=== PATIENT | female | born 2005 | race African-American/Black ===

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

== ENCOUNTER 2023-10-21 19:52 | Emergency (ER) | payer MEDICARE, OTHER ==
[~2023-10-21] VITALS: Ht 172.7 cm; Wt 93.0 kg
[2023-10-21] MEDS ORDERED: KETOROLAC 15MG/ML VIAL IM ONE (21:00)
[2023-10-21 21:04] VITALS: O2SAT 100
[2023-10-21] MEDS ORDERED: METH-653 MT (21:05)
[2023-10-21] MEDS ORDERED: LIDO700A15 TP (21:05)
[2023-10-21 21:28] VITALS: BP 124/77; PULSE 73; RESP 20; TEMP 98.3
== END 2023-10-21 21:29 | disposition home or self-care (01) ==
LOC: ER 19:52
DX: M54.2 Cervicalgia (principal); V49.9XXA Car occupant (driver) (passenger) injured in unspecified traffic accident, initial encounter; Y93.9 Activity, unspecified; Y92.89 Other specified places as the place of occurrence of the external cause; Y99.8 Other external cause status
CPT/HCPCS: 81025; 99283; J1885; Z7610 ×2

== ENCOUNTER 2024-01-16 06:51 | Emergency (ER) | payer MEDICARE ==
[~2024-01-16] VITALS: Ht 175.3 cm; Wt 90.0 kg
[~2024-01-16 06:51] MED LIST: LIDO700A15 TP; METH-653 MT
[2024-01-16 07:16] VITALS: O2SAT 99
[2024-01-16] MEDS: ONDANSETRON 4MG ODT PO STA (08:17)
[2024-01-16] MEDS: MAGNESIUM/ALUMINUM HYDROXIDE/SIMETHICONE 30ML UDC PO STA (08:17)
[2024-01-16 08:41] LABS: CLARITY URINE CLEAR (CLEAR); COLOR URINE YELLOW (YELLOW); GLUCOSE URINE NEGATIVE (NEGATIVE); KETONES URINE NEGATIVE (NEGATIVE); LEUKOCYTE ESTERASE URINE 2+ (NEGATIVE); NITRITE URINE NEGATIVE (NEGATIVE); OCCULT BLOOD URINE NEGATIVE (NEGATIVE); PH URINE 6.5 (4.5-8.0); PROTEIN URINE NEGATIVE (NEGATIVE); SPECIFIC GRAVITY URINE 1.012 (1.005-1.030); UROBILINOGEN URINE 0.2 E.U./dL (0.2-1.0)
[2024-01-16 08:43] LABS: CHLORIDE 110 mEq/L (98-107); POTASSIUM 4.4 mEq/L (3.5-5.1); SODIUM 140 mEq/L (136-145)
[2024-01-16 08:44] LABS: BASOPHILS % 0.9 % (0.0-2.0); CARBON DIOXIDE 26 mEq/L (21-32); DIFFERENTIAL COMMENT 0; HCG SCREEN NEGATIVE; HEMATOCRIT. 36.5 % (36.0-48.0); HEMOGLOBIN. 11.9 g/dL (12.0-16.0); LYMPHOCYTES % 30.5 % (20.0-50.0); MEAN CORPUSCULAR HEMOGLOBIN 24.3 pg (28.0-32.0); MEAN CORPUSCULAR HGB CONC 32.5 g/dL (31.0-37.0); MEAN CORPUSCULAR VOLUME 74.8 fL (81.0-99.0); MEAN PLATELET VOLUME 9.7 fl (7.4-10.4); NEUTROPHILS % 59.6 % (40.0-76.0); PLATELET 225 x1000/uL (130-400); RED BLOOD CELL COUNT 4.89 mill/uL (4.2-5.4); RED CELL DISTRIBUTION WIDTH 15.1 % (11.6-14.6); WHITE BLOOD COUNT 6.7 x1000/uL (4.5-11.0)
[2024-01-16 08:45] LABS: CALCIUM 9.7 mg/dL (8.7-10.4)
[2024-01-16 08:46] LABS: INR 0.9; PROTHROMBIN TIME 10.5 sec (9.6-11.0)
[2024-01-16 08:49] LABS: CREATININE 0.8 mg/dL (0.6-1.0)
[2024-01-16 08:50] LABS: GLUCOSE 85 mg/dL (70-105); UREA NITROGEN BLOOD 7 mg/dL (9-23)
[2024-01-16 08:51] LABS: ALANINE AMINOTRANSFERASE 10 IU/L (10-49); ALBUMIN 4.3 g/dL (3.2-4.8); ASPARTATE AMINOTRANSFERASE 24 IU/L (<34)
[2024-01-16 08:52] LABS: BILIRUBIN DIRECT 0.2 mg/dL (<=3.0); BILIRUBIN TOTAL 0.7 mg/dL (0.1-1.0); PROTEIN TOTAL 7.4 g/dL (6.0-8.3)
[2024-01-16 09:01] LABS: SQUAMOUS EPITHELIAL CELL URINE 1+ /lpf (RARE/1+)
[2024-01-16 09:05] LABS: BACTERIA URINE TRACE
[2024-01-16 09:06] LABS: RBC URINE 0-2 /hpf (0-2)
[2024-01-16] MEDS ORDERED: CEFP100S5 MT (11:11)
[2024-01-16 11:18] VITALS: BP 117/50; PULSE 62; RESP 18; TEMP 36.50292; O2SAT 100
== END 2024-01-16 11:45 | disposition home or self-care (01) ==
LOC: ER 06:51
DX: R10.13 Epigastric pain (principal); R11.0 Nausea; E11.9 Type 2 diabetes mellitus without complications
CPT/HCPCS: 99284; 74176; 80076; 80048; 81003; 81025; 84703; 83690; 85025; 85610; 36415; Q0162